=== PATIENT | male | born 1990 | race Caucasian/White ===

== ENCOUNTER 2017-12-27 20:48 | Emergency (ER) | payer BC, OTHER ==
[2017-12-27 21:01] VITALS: BP 143/99
[2017-12-27] MEDS ORDERED: Ondansetron 4 MG/2 ML SDV IVPUSH ONE (21:19)
[2017-12-27] MEDS ORDERED: LORazepam 2 MG/ML SDV IVPUSH ONE (21:19)
--- NOTE | 2017-12-27 21:27 | EDM.PDOC ---
ED HPI GENERAL MEDICAL PROBLEM - General Chief Complaint: Gastrointestinal Problem Stated Complaint: DIARREAH VOMITING SOB Time Seen by Provider: 12/27/17 21:06 Source of Information: Reports: Patient, Family History Limitations: Reports: No Limitations - History of Present Illness INITIAL COMMENTS - FREE TEXT/NARRATIVE: This is a 27-year-old male. He states that he ate at [employer] yesterday and didn't feel real good last night and had a hard time sleeping last night. When he got up this morning he's been tired all day and he went out to [employer] to get his afternoon meal. When he got home he wasn't feeling any better and then he became nauseated and around 7:30 he started vomiting. He vomited up the [employer]. This made him start hyperventilating. He felt tingly and numb all over and apparently got into the shower to cool down and he thinks he might a passed out in the shower. He called his father who comes over and the patient is breathing rapidly feeling numb and tingly and he is brought here to the ER. The patient is also having some diarrhea but apparently he has a history of intermittent diarrhea. The patient does not appear to be in acute distress though he is still breathing somewhat rapidly. He still complains of being nauseated. He denies any colds or coughs denies any fever or chills. When he was breathing really rapidly at home he had some mild chest pain. This seemed to resolve by the time he came to the ER he denies any abdominal pain or cramps Left Upper Abdomen Pain Score (Numeric/FACES): 8 - Related Data Allergies Allergy/AdvReac Type Severity Reaction Status Date / Time No Known Allergies Allergy Verified 02/10/14 21:57 Home Meds: Home Meds . [No Known Home Meds] 12/27/17 [History] Past Medical History - Past Health History Medical/Surgical History: Denies Medical/Surgical History Social & Family History - Tobacco Use Smoking Status *Q: Current Every Day Smoker Years of Tobacco use: 15 Packs/Tins Daily: 1 - Caffeine Use Caffeine Use: Reports: Energy Drinks, Soda, Tea - Alcohol Use Days Per Week of Alcohol Use: 0 - Recreational Drug Use Recreational Drug Use: No Recreational Drug Type: Reports: Marijuana/Hashish Other Recreational Drug Type: quit a month ago ED ROS GENERAL - Review of Systems Review Of Systems: See Below Constitutional: Reports: Decreased Appetite. Denies: Fever, Chills HEENT: Reports: No Symptoms Respiratory: Reports: Shortness of Breath. Denies: Wheezing, Cough Cardiovascular: Reports: Chest Pain, Lightheadedness, Syncope Endocrine: Reports: No Symptoms GI/Abdominal: Reports: Diarrhea, Nausea, Vomiting. Denies: Abdominal Pain : Reports: No Symptoms Musculoskeletal: Reports: No Symptoms Skin: Reports: No Symptoms Neurological: Reports: Dizziness, Numbness, Syncope, Tingling Psychiatric: Reports: Anxiety Hematologic/Lymphatic: Reports: No Symptoms Immunologic: Reports: No Symptoms ED EXAM, GI/ABD - Physical Exam Exam: See Below Exam Limited By: No Limitations General Appearance: Alert, WD/WN, Anxious, Moderate Distress Eyes: Bilateral: Normal Appearance Ears: Normal External Exam, Normal Canal, Normal TMs Nose: Normal Inspection Throat/Mouth: Normal Inspection, Normal Lips, Normal Oropharynx, Normal Voice, No Airway Compromise Head: Normocephalic Neck: Supple Respiratory/Chest: No Respiratory Distress, Lungs Clear, Normal Breath Sounds. No: Rales, Rhonchi, Wheezing, Retractions Cardiovascular: Regular Rate, Rhythm, No Murmur GI/Abdominal Exam: Soft, Non-Tender Back Exam: Full Range of Motion Extremities: Normal Inspection, Normal Range of Motion Neurological: Alert, Oriented Psychiatric: Anxious Skin Exam: Warm, Dry EKG INTERPRETATION EKG Date: 12/27/17 Time: 22:12 EKG Interpretation Comments: Normal sinus rhythm, no acute ST or T-wave changes, there is early repolarization noted but no ischemia noted. Course - Vital Signs Last Recorded V/S: Last Vital Signs Temp 96.9 F 12/27/17 21:00 Pulse 113 H 12/27/17 21:00 Resp 20 12/27/17 21:00 BP 143/99 H 12/27/17 21:00 Pulse Ox 100 12/27/17 21:00 - Orders/Labs/Meds Orders: Active Orders 24 hr Category Date Time Status EKG 12 Lead [EKG Documentation Completion] [RC] STAT Care 12/27/17 21:20 Active Sodium Chloride 0.9% [Normal Saline] 1,000 ml Med 12/27/17 21:30 Active IV ASDIRECTED Medication Orders Sodium Chloride (Normal Saline) 1,000 mls @ 1,000 mls/hr IV ASDIRECTED MEGAN Last Admin: 12/27/17 21:25 Dose: 1,000 mls/hr Labs: Laboratory Tests 12/27/17 12/27/17 Range/Units 21:10 21:10 WBC 20.40 H (4.23-9.07) K/mm3 RBC 5.36 (4.63-6.08) M/mm3 Hgb 17.3 (13.7-17.5) gm/L Hct 48.0 (40.1-51.0) % MCV 89.6 (79.0-92.2) fl MCH 32.3 H (25.7-32.2) pg MCHC 36.0 H (32.2-35.5) g/dl RDW Std Deviation 42.9 (35.1-43.9) fL Plt Count 288 (163-337) K/mm3 MPV 10.1 (9.4-12.3) fl Neut % (Auto) 85.4 H (34.0-67.9) % Lymph % (Auto) 6.2 L (21.8-53.1) % Tyler % (Auto) 7.2 (5.3-12.2) % Eos % (Auto) 1.0 (0.8-7.0) Baso % (Auto) 0.1 (0.1-1.2) % Neut # (Auto) 17.40 H (1.78-5.38) K/mm3 Lymph # (Auto) 1.27 L (1.32-3.57) K/mm3 Tyler # (Auto) 1.47 H (0.30-0.82) K/mm3 Eos # (Auto) 0.21 (0.04-0.54) K/mm3 Baso # (Auto) 0.02 (0.01-0.08) K/mm3 Manual Slide Review Normal smear Sodium 143 (136-145) mEq/L Potassium 3.5 (3.5-5.1) mEq/L Chloride 104 (98-107) mEq/L Carbon Dioxide 20 L (21-32) mEq/L Anion Gap 22.5 H (5-15) BUN 18 (7-18) mg/dL Creatinine 1.4 H (0.7-1.3) mg/dL Est Cr Clr Drug Dosing 82.42 mL/min Estimated GFR (MDRD) 60 (>60) mL/min BUN/Creatinine Ratio 12.9 L (14-18) Glucose 143 H (74-106) mg/dL Calcium 10.2 H (8.5-10.1) mg/dL Total Bilirubin 0.9 (0.2-1.0) mg/dL AST 27 (15-37) U/L ALT 20 (16-63) U/L Alkaline Phosphatase 84 (46-116) U/L Troponin I < 0.017 (0.00-0.056) ng/mL Total Protein 8.1 (6.4-8.2) g/dl Albumin 5.4 H (3.4-5.0) g/dl Globulin 2.7 gm/dL Albumin/Globulin Ratio 2.0 (1-2) Meds: Medications Generic Name Dose Route Start Last Admin Trade Name Freq PRN Reason Stop Dose Admin Sodium Chloride 1,000 mls @ 1,000 mls/hr 12/27/17 21:30 12/27/17 21:25 Normal Saline IV 1,000 mls/hr ASDIRECTED MEGAN Administration Discontinued Medications Generic Name Dose Route Start Last Admin Trade Name Freq PRN Reason Stop Dose Admin Sodium Chloride 1,000 mls @ 999 mls/hr 12/27/17 22:37 12/27/17 22:43 Normal Saline IV 12/27/17 23:37 999 mls/hr ONETIME ONE Administration Lorazepam 0.5 mg 12/27/17 21:19 12/27/17 21:26 Ativan IVPUSH 12/27/17 21:20 0.5 mg ONETIME ONE Administration Ondansetron HCl 4 mg 12/27/17 21:19 12/27/17 21:25 Zofran IVPUSH 12/27/17 21:20 4 mg ONETIME ONE Administration - Re-Assessments/Exams Free Text/Narrative Re-Assessment/Exam: 12/27/17 23:32 I spoke to the patient regarding his test results. He does appear to be dehydrated. I think his elevated white count is related to his nausea and vomiting and his anxiety since he does not appear to have a focus of infection other than possibly the food poisoning. He is feeling markedly better with the fluids and the medications his nausea has resolved. 12/27/17 23:52 I spoke to the patient regarding being very careful about tomorrow where he just needs to drink fluids and not eat for at least 24 hours. If he does decide to eat make sure he eats something is easy to digest with no meats or vegetables. 12/27/17 23:54 Patient indicates he is feeling so much better and he wants to go home. He no longer has any abdominal pain or cramps no nausea or vomiting. His rapid breathing had resolved and he feels good. Departure - Departure Time of Disposition: 23:52 Disposition: Home, Self-Care 01 Condition: Good Clinical Impression: Nausea and vomiting Qualifiers: Vomiting type: unspecified Vomiting Intractability: non-intractable Qualified Code(s): R11.2 - Nausea with vomiting, unspecified Diarrhea Qualifiers: Diarrhea type: unspecified type Qualified Code(s): R19.7 - Diarrhea, unspecified Food poisoning Qualifiers: Encounter type: initial encounter Injury intent: accidental or unintentional Qualified Code(s): T62.91XA - Toxic effect of unspecified noxious substance eaten as food, accidental (unintentional), initial encounter - Discharge Information Instructions: Nausea and Vomiting, Adult Referrals: PCP,None [Primary Care Provider] - Forms: ED Department Discharge Additional Instructions: Over the next 24 hours lots of fluid such as water or juices, if you really have to eat over the next 24 hours and eat something this easy to digest such as crackers or yogurt. Please avoid vegetables and meat for at least 48 hours since they are hard to digest and they might upset your stomach again, recheck with your family doctor as needed or return to the ER if needed. - My Orders Last 24 Hours: My Active Orders 12/27/17 21:20 EKG 12 Lead [EKG Documentation Completion] [RC] STAT 12/27/17 21:30 Sodium Chloride 0.9% [Normal Saline] 1,000 ml IV ASDIRECTED - Assessment/Plan Last 24 Hours: My Active Orders 12/27/17 21:20 EKG 12 Lead [EKG Documentation Completion] [RC] STAT 12/27/17 21:30 Sodium Chloride 0.9% [Normal Saline] 1,000 ml IV ASDIRECTED
[2017-12-27] MEDS ORDERED: Sodium Chloride 0.9% 1,000 ML IV SCH (21:30)
[2017-12-27] MEDS ORDERED: Sodium Chloride 0.9% 1,000 ML IV ONE (22:37)
== END 2017-12-27 23:58 | disposition home or self-care (01) ==
LOC: JD.ED 20:48
DX: T62.91XA Toxic effect of unspecified noxious substance eaten as food, accidental (unintentional), initial encounter (principal); R11.2 Nausea with vomiting, unspecified; R19.7 Diarrhea, unspecified; F17.210 Nicotine dependence, cigarettes, uncomplicated
CPT/HCPCS: 36415; 80053; 84484; 85025; 93005; 96361; 96374; 96375; 99284; J2060; J2405; J7040; 93010

== ENCOUNTER 2022-10-08 23:56 | Emergency (ER) | payer BC ==
[2022-10-09 00:23] VITALS: PULSE 66
[2022-10-09] MEDS ORDERED: Sodium Chloride 0.9% 10 ML Syringe FLUSH PRN (00:48)
[2022-10-09] MEDS ORDERED: Ketorolac 15 MG/ML SDV IVPUSH ONE (00:49)
[2022-10-09] MEDS ORDERED: Iopamidol 612 MG/ML 100 ML Bottle IVPUSH ONE (02:50)
[2022-10-09 04:46] VITALS: BP 135/75
== END 2022-10-09 04:49 | disposition home or self-care (01) ==
LOC: JD.ED 23:56
DX: M54.41 Lumbago with sciatica, right side (principal); R10.31 Right lower quadrant pain; R10.32 Left lower quadrant pain; F17.210 Nicotine dependence, cigarettes, uncomplicated
CPT/HCPCS: 36415; 74177; 80053; 81001; 85025; 96374; 99284; J1885; J3490

== ENCOUNTER 2022-10-27 12:56 | Emergency (ER) | payer BC ==
[2022-10-27] MEDS ORDERED: Ondansetron 4 MG/2 ML SDV IVPUSH ONE (13:19)
[2022-10-27] MEDS ORDERED: Sodium Chloride 0.9% 1,000 ML IV ONE (13:19)
[2022-10-27] MEDS ORDERED: HYDROmorphone 1 MG/ML Syringe IVPUSH ONE (13:19)
[2022-10-27] MEDS ORDERED: Sodium Chloride 0.9% 10 ML Syringe FLUSH PRN (13:19)
[2022-10-27 15:18] VITALS: BP 115/84; PULSE 74
== END 2022-10-27 15:18 | disposition home or self-care (01) ==
LOC: JD.ED 12:56
DX: R19.7 Diarrhea, unspecified (principal); D72.829 Elevated white blood cell count, unspecified; Z72.0 Tobacco use
CPT/HCPCS: 36415; 80053; 81001; 83630; 83690; 83735; 85025; 86140; 87045; 87046; 87493; 87899; 96360; 99284; J3490; J7030; 99283

== ENCOUNTER 2022-10-28 20:56 | Emergency (ER) | payer BC ==
[2022-10-28] MEDS ORDERED: Sodium Chloride 0.9% 10 ML Syringe FLUSH PRN (21:41)
[2022-10-28] MEDS ORDERED: Sodium Chloride 0.9% 1,000 ML IV STA (21:42)
[2022-10-28] MEDS ORDERED: Magnesium Sulfate/Water 2 GM in Premix Bag 1 BAG IV ONE (22:37)
[2022-10-28] MEDS ORDERED: metroNIDAZOLE 500 MG Tab PO ONE (23:53)
[2022-10-29] MEDS ORDERED: Iopamidol 612 MG/ML 100 ML Bottle IVPUSH ONE (00:53)
[2022-10-29 01:55] VITALS: BP 128/76; PULSE 75
== END 2022-10-29 01:54 | disposition home or self-care (01) ==
LOC: JD.ED 20:56
DX: K52.9 Noninfective gastroenteritis and colitis, unspecified (principal); Z72.0 Tobacco use
CPT/HCPCS: 36415; 74177; 80053; 83735; 85025; 85610; 85730; 86140; 87046; 87328; 87329; 96361; 96365; 96366; 99284; A9270; J3475; J7030

== ENCOUNTER 2022-10-31 10:32 | Emergency (ER) | payer BC ==
[2022-10-31 13:37] VITALS: BP 120/65; PULSE 80
== END 2022-10-31 12:50 | disposition home or self-care (01) ==
LOC: JD.ED 10:32
DX: R10.9 Unspecified abdominal pain (principal)
CPT/HCPCS: 99282; 99283

== ENCOUNTER 2024-02-28 10:15 | Emergency (ER) | payer BC ==
[2024-02-28] MEDS ORDERED: Ketorolac 60 MG/2 ML SDV IM ONE (11:50)
[2024-02-28] MEDS: Ketorolac 15 MG/ML SDV IM ONE (12:05)
[2024-02-28] MEDS: Dexamethasone 4 MG Tab PO ONE (12:09)
[2024-02-28 12:27] VITALS: BP 130/92; PULSE 72
== END 2024-02-28 12:28 | disposition home or self-care (01) ==
LOC: JD.ED 10:15
DX: M54.50 Low back pain, unspecified (principal); G89.29 Other chronic pain; Z79.899 Other long term (current) drug therapy
CPT/HCPCS: 72100; 96372; 99283; J1885; J8540